=== PATIENT | male | born 1960 | race Caucasian/White ===

== ENCOUNTER 2021-08-19 00:50 | Day surgery (SDC) | payer BC, SELFPAY ==
[2021-07-31 14:07] VITALS: BMI 31.6
[2021-08-19 07:52] VITALS: BP 135/90; PULSE 75; RESP 18; TEMP 36.3; O2SAT 99
[2021-08-19] MEDS: LACTATED RINGERS 1,000 ML 150 ML IV CONT (07:54)
--- NOTE | 2021-08-19 08:00 | WPDGICN ---
Assessment and Plan Assessment and plan (1) Colon cancer screening: Code(s): Z12.11 - Encounter for screening for malignant neoplasm of colon Status: Acute Assessment and Plan: Patient presents for screening colonoscopy. Appears to be at average risk for colon polyps. GI Consult Note Consult date/time: 08/19/21 08:00 HPI: Mendel Diaz is a 61 year old male presents for screening colonoscopy. Patient's current weight appetite and bowel movements are normal. He denies abdominal pain. He has had no bleeding. Family history is noncontributory. Patient's last colonoscopy was 12 years ago. Review of Systems Review of Systems: All systems reviewed & are unremarkable except as noted in HPI and below PMFSH Past Medical History Medical History (Updated 08/16/21 @ 12:12 by Chapincito Nguyen DO) History of ulcer disease Mixed hyperlipidemia Family History Family History Mother Hypertension Family history of cardiovascular disease Family history of lung cancer Father Family history of cardiovascular disease Acute myocardial infarction Family history of coronary artery disease Social History Social History Smoking status: Never smoker Alcohol intake: current Drinks per week: 2 Living arrangements: alone Spiritual care concerns: No Meds Home Medications and Allergies Home Medications Medication Instructions Recorded Confirmed Type ikxebkmo-vgo-sjbae acid 0.4 1 tablet PO DAILY 06/30/19 08/15/21 History mg-lycopene 300 mcg-lutein 250 mcg tablet simvastatin 40 mg tablet 40 mg PO DAILY #90 tablet 01/18/21 08/15/21 Rx aspirin [Baby Aspirin] 1 tablet PO DAILY 07/31/21 08/15/21 History Allergies Allergy/AdvReac Type Severity Reaction Status Date / Time No Known Allergies Verified 08/19/21 07:50 Vital Signs Vital Signs - 24 hr 08/19/21 07:52 Temperature 97.3 F L Pulse Rate 75 Respiratory Rate 18 Blood Pressure 135/90 Pulse Oximetry 99 Exam Narrative: Physical exam reveals patient be alert. Vital signs stable. HEENT exam is unremarkable. Patient is anicteric. Lungs are clear to auscultation and percussion. Heart is without murmur or extra sounds. Abdominal exam bowel sounds are present soft nontender with no hepatosplenomegaly. Digital external rectal exam is normal.
--- NOTE | 2021-08-19 08:03 | P.PNAN_ITS ---
Anes - Initial Pre Proc Eval Procedure: Operation Date: 08/19/21 09:00 Proposed Procedures p Screening Colonoscopy - Will Prince MD Date/Time: 08/19/21 08:03 Surgeon: Will Prince MD Pre Op Diagnosis: neoplasm screening Patient Data Age: 61 Gender: M Height: 1.78 m Weight: 104.5 kg Last Vital Signs Temp 36.3 C L 08/19/21 07:52 Pulse 75 08/19/21 07:52 Resp 18 08/19/21 07:52 BP 135/90 08/19/21 07:52 Pulse Ox 99 08/19/21 07:52 Allergies Allergy/AdvReac Type Severity Reaction Status Date / Time No Known Allergies Verified 08/19/21 07:50 Home Medications Medication Instructions Recorded Confirmed Type lokpkrmq-yjp-luawe acid 0.4 1 tablet PO DAILY 06/30/19 08/15/21 History mg-lycopene 300 mcg-lutein 250 mcg tablet simvastatin 40 mg tablet 40 mg PO DAILY #90 tablet 01/18/21 08/15/21 Rx aspirin [Baby Aspirin] 1 tablet PO DAILY 07/31/21 08/15/21 History Patient hx anesthesia problems: none Family hx anesthesia problems: none Results Review: All pre-operative results and documents have been reviewed as part of the pre-operative evaluation. [facility] Past Medical History Medical History (Updated 08/16/21 @ 12:12 by Chapincito Nguyen DO) History of ulcer disease Mixed hyperlipidemia Family History Family History Mother Hypertension Family history of cardiovascular disease Family history of lung cancer Father Family history of cardiovascular disease Acute myocardial infarction Family history of coronary artery disease Social History Social History Smoking status: Never smoker Alcohol intake: current Drinks per week: 2 Living arrangements: alone Spiritual care concerns: No Anes - Eval Final PreProcedure Day of Procedure 08/19/21 08:03 Patient weight: obese Heart: regular rate and rhythm Lungs: clear to auscultation and normal air movement Airway: Mallampati scale class II Neurological: alert and oriented Last oral intake: >/= 8 hours ASA classification: II Emergent: no Anesthetic plan: proceed Anesthesia type and monitoring: general GIVS and standard monitoring Results Review: All pre-operative results and documents have been reviewed as part of the pre-operative evaluation. Informed Consent: The patient's anesthetic plan and its attendant risks and benefits were discussed with the patient/family/POA. Questions were solicited and answers provided to the satisfaction of the patient/family/POA.
[2021-08-19] MEDS: SIMETHICONE ORAL SUSPENSION 20 MG/0.3 ML 30 ML BOTTLE 0.6 ML IRRIGATION (08:37)
[2021-08-19 08:48] VITALS: BP 110/71; PULSE 65; RESP 16; O2SAT 97
[2021-08-19 08:58] VITALS: BP 110/76; PULSE 62; RESP 24; O2SAT 98
== END 2021-08-19 09:23 | disposition home or self-care (01) ==
PROVIDERS: PCP Family Medicine; Visit Provider Internal Medicine Gastroenterology
PROC: 0DJD8ZZ Inspection of Lower Intestinal Tract, Via Natural or Artificial Opening Endoscopic (ICD-10-PCS; CPT 45378; principal; 2021-08-19 09:00)
DX: Z12.11 Encounter for screening for malignant neoplasm of colon (principal); D12.5 Benign neoplasm of sigmoid colon; E78.2 Mixed hyperlipidemia; E66.9 Obesity, unspecified; Z68.33 Body mass index [BMI] 33.0-33.9, adult; Z79.82 Long term (current) use of aspirin
CPT/HCPCS: 45385; 88305; J2704; J7120